=== PATIENT | female | born 1985 | race Caucasian/White ===

== ENCOUNTER → 2020-10-10 13:54 | Outpatient (CLI) | payer BC, SELFPAY ==
--- NOTE | ~2020-10-10 | MM_ITS ---
EXAMINATION: MM scrn beth implant BI w rachel HISTORY: Screening mammogram TECHNIQUE: Craniocaudal and mediolateral oblique 3-D tomosynthesis images with implant displacement a nd synthetic 2-D images were generated. Craniocaudal and mediolateral oblique views of the breasts wi thout implant displacement were obtained using full field digital mammography. CAD analysis was submi tted and interpreted. COMPARISON: 10/18/2015 BREAST PARENCHYMAL COMPOSITION: The breasts are heterogeneously dense, which may obscure small masses . FINDINGS: There are bilateral subpectoral silicone implants. There is no evidence of suspicious mass, calcification, or architectural distortion to suggest malignancy in either breast. There has been no suspicious interval change. IMPRESSION: 1. No mammographic evidence of malignancy. 2. Recommend routine screening mammography in one year. BI-RADS Category 1: Negative Reviewed, dictated and finalized at location A. SCRAPER
== END ==
PROVIDERS: Visit Provider Obstetrics & Gynecology
DX: Z12.31 Encounter for screening mammogram for malignant neoplasm of breast (principal)
CPT/HCPCS: 77063; 77067

== ENCOUNTER → 2021-08-05 01:57 | Outpatient (CLI) | payer BC, SELFPAY ==
[2021-08-05 18:07] LABS: SARS-CoV-2 RNA PCR Negative
== END ==
PROVIDERS: PCP Family Medicine Sports Medicine; Visit Provider Otolaryngology
DX: Z01.812 Encounter for preprocedural laboratory examination (principal); Z20.822 Contact with and (suspected) exposure to COVID-19
CPT/HCPCS: C9803; U0003; U0005

== ENCOUNTER 2021-08-08 00:29 | Day surgery (SDC) | payer BC, SELFPAY ==
[2021-08-02 14:11] VITALS: BMI 24.9
--- NOTE | 2021-08-03 16:44 | PM.IMHP ---
H&P: HPI History of Present Illness Date/Time: 08/03/21 16:44 Chief Complaint: chronic tonsillitis, recurrent tonsillitis, pharyngitis, tonsil stones Narrative: patient presents for planned surgical procedure. No change in history no change in symptoms Review of Systems Constitutional: Constitutional: Denies fatigue, Denies fever(s) and Denies lethargy Eyes: Eyes: Denies blurry vision and Denies change in vision ENT: Reports as per HPI Cardiovascular: Cardiovascular: Denies chest pain Respiratory: Respiratory: Denies cough Endocrine: Endocrine: Denies fatigue Hematologic/Lymphatic: Hematologic/Lymphatic: Denies easy bleeding, Denies easy bruising and Denies lymphadenopathy Allergic/Immunologic: Allergic/Immunologic: Denies seasonal rhinorrhea PMFSH Past Medical History Medical History Endometriosis Surgical History Surgical History H/O hernia repair History of section History of cholecystectomy Family History Family History Mother Family history of malignant neoplasm of breast in first degree relative Other Cerebrovascular accident Family history of heart disease in male family member before age 55 Social History Social History (Updated 07/18/21 @ 15:33 by Usha Quintanilla MA) Smoking status: Never smoker Alcohol intake: never Substance use: never Substance use type: does not use Gender identity (if verbalized by the patient): Female Spiritual care concerns: No Meds Home Medications and Allergies Home Medications Medication Instructions Recorded Confirmed Type estradiol [Divigel] 1 mg TOPICAL DAILY 08/02/21 08/02/21 History Allergies Allergy/AdvReac Type Severity Reaction Status Date / Time shellfish derived Allergy Intermediate TROUBLE Verified 08/02/21 14:10 BREATHING Exam Const: General: cooperative, healthy appearing, comfortable, well developed and alert HENMT: Head: normal to inspection, normocephalic and atraumatic Ears: hearing grossly normal bilaterally, external ears normal, TM's normal bilaterally and EAC's normal General nose exam: Normal external nose present, Normal nares present, No nasal polyps present, Normal nasal mucous membranes and turbinates present and Normal septum present Face and sinus: normal facial exam Mouth: Yes Normal oral and palatal mucosa present, Yes lip normal, Yes tongue normal, Yes oropharynx normal and Yes moist mucous membranes Teeth and gingiva: dentition normal and gingiva normal Throat: posterior oropharynx normal, tonisls abnormal ( Appearance of chronic infection cryptic erythematous stones) and uvula midline Eyes: General: appearance normal, both eyes and all related structures Periorbital: periorbital findings normal Eyelids: eyelids normal Conjunctivae: conjunctivae normal Sclera: sclerae normal Neck: Neck: normal visual inspection, full ROM and no lymphadenopathy Thyroid: thyroid normal Lymphatic: no lymphadenopathy noted Resp: Effort & Inspection: normal respiratory effort and able to speak in complete sentences Cardio: Jugular venous distension: no JVD Neuro: Cranial nerves: Yes CN's II-XII intact bilaterally Assessment and Plan Assessment and plan (1) Chronic tonsillitis: Code(s): J35.01 - Chronic tonsillitis Status: Acute Assessment and Plan: Patient has asymmetric tonsils stones somewhat of a chronic tonsillitis recurrent the sense she has had multiple infections each year for many years. Plan is for the OR for tonsillectomy risks were discussed in great detail including pain bleeding possible postoperative bleed postoperative pain need for postoperative pain medication time off work Tooth pain dental pain tongue pain tongue numbness ear pain.. Patient voiced understanding of these risks. Total operative time
--- NOTE | 2021-08-07 16:20 | P.PNAN_ITS ---
Anes - Initial Pre Proc Eval Procedure: Operation Date: 08/08/21 11:30 Proposed Procedures p Tonsillectomy - Fabricio Laughlin MD Date/Time: 08/07/21 16:20 Surgeon: Fabricio Laughlin MD Pre Op Diagnosis: chronic tonsilitis Patient Data Age: 36 Gender: F Height: 1.65 m Weight: 68 kg Allergies Allergy/AdvReac Type Severity Reaction Status Date / Time shellfish derived Allergy Intermediate TROUBLE Verified 08/08/21 09:47 BREATHING Home Medications Medication Instructions Recorded Confirmed Type estradiol [Divigel] 1 mg TOPICAL DAILY 08/02/21 08/08/21 History Patient hx anesthesia problems: none Family hx anesthesia problems: none Results Review: All pre-operative results and documents have been reviewed as part of the pre-operative evaluation. [facility] Past Medical History Medical History (Updated 08/07/21 @ 16:21 by Sony Zavala MD) Chronic tonsillitis Endometriosis Recurrent tonsillitis Surgical History Surgical History H/O hernia repair History of section History of cholecystectomy Family History Family History Mother Family history of malignant neoplasm of breast in first degree relative Other Cerebrovascular accident Family history of heart disease in male family member before age 55 Social History Social History (Updated 07/18/21 @ 15:33 by Usha Quintanilla MA) Smoking status: Never smoker Alcohol intake: never Substance use: never Substance use type: does not use Living arrangements: with family Gender identity (if verbalized by the patient): Female Spiritual care concerns: No Anes - Eval Final PreProcedure Day of Procedure 08/07/21 16:20 Patient weight: normal and overweight Heart: regular rate and rhythm Lungs: clear to auscultation and normal air movement Airway: Mallampati scale class II Neurological: alert and oriented Last oral intake: >/= 8 hours ASA classification: II Emergent: no Anesthetic plan: proceed Anesthesia type and monitoring: general ETT Results Review: All pre-operative results and documents have been reviewed as part of the pre-operative evaluation. Informed Consent: The patient's anesthetic plan and its attendant risks and benefits were discussed with the patient/family/POA. Questions were solicited and answers provided to the satisfaction of the patient/family/POA.
[2021-08-08] VITALS (8 sets, daily range): BP systolic 105–129; BP diastolic 63–89; PULSE 59–99; RESP 10–16; TEMP 36.4–37.2; O2SAT 100
--- NOTE | 2021-08-08 07:09 | WPDHPUPDATE1 ---
History and Physical Update Update Date/Time: 08/08/21 07:09 History and Physical has been reviewed, including an updated exam of the patient. There are NO changes in the patient's condition. Risks, benefits, and alternatives have been discussed and questions answered. Patient agrees to proceed with procedure.
[2021-08-08] MEDS: LACTATED RINGERS 1,000 ML 30 ML IV CONT ×2 (10:10→12:03)
[2021-08-08] MEDS: ACETAMINOPHEN 500 MG TABLET 1000 MG PO (10:10)
[2021-08-08] MEDS: SCOPOLAMINE 1.5 MG PATCH TRANSDERM (10:11)
--- NOTE | 2021-08-08 11:54 | SUR.OPER ---
EBL=5ml
--- NOTE | 2021-08-08 12:16 | W.PM.PROC2 ---
Procedure Note - Detailed Date of Procedure 08/08/21 Pre-op Diagnosis chronic tonsilitis, recurrent tonsillitis, throat pain, pharyngitis Post-op Diagnosis same Procedure Performed With tonsillectomy Surgeon Fabricio Laughlin MD Anesthesia general Indications See above Findings No adenoids 2+ cryptic endophytic tonsils with stones purulence Description of Procedure Patient correctly identified consent verified patient brought to OR time-out performed. General anesthesia induced endotracheal tube secured in midline. Patient prepped and draped 2nd time-out performed. McIvor mouth gag inserted and opened revealed the aforementioned findings. This procedure was bilateral right tonsil grasped dissected in extracapsular plane using Bovie electrocautery at a setting of 8. Bleeding controlled with intermittent application of suction Bovie electrocautery at a setting of 12. Exact same procedure at the exact same findings performed on the left side. Tonsils were symmetric no asymmetry noted. Red rubber catheter placed in the nasal passage to suspend the soft palate anteriorly and near utilized to view the adenoid pad which was nonexistent. Red rubber catheter removed McIvor mouth gag lowered for 30 seconds and reopened revealed no bleeding. Hemostasis was excellent. I performed all dictated portions of the procedure. Total blood loss 5 cc. There were no complications. Care the patient was turned over to Anesthesiology. Estimated Blood Loss -5.0 Drains No Packing No Pathology yes Complications No immediate complications Condition stable Disposition PACU
[2021-08-08] MEDS: fentaNYL CITRATE INJ (*CRX) 100 MCG/2 ML VIAL 25 MCG IV PUSH ×2 (12:23→12:27)
--- NOTE | 2021-08-08 12:36 | SUR.PHASEI ---
Simple mask removed at 1232.
[2021-08-08] MEDS: ONDANSETRON INJ 4 MG/2 ML VIAL IV PUSH (13:04)
--- NOTE | 2021-08-08 14:12 | SUR.PHASEII ---
1300; UPON ARRIVAL INTO [facility] PT BECAME NAUSEATED AND HAD DRY HEAVES. 1304; JEANETTE HERRERA GAVE IV ZOFRAN 1310; PT RESTING QUIETLY. EATING POPSICLE. SPOUSE AT SIDE. 1400; PT DROWSY, EATING SECOND POPSICLE. STATES PAIN MILD AND TOLERABLE 3/10. ICE PACK ON FRONT OF NECK FOR COMFORT. NO NAUSEA AT THIS TIME
== END 2021-08-08 14:43 | disposition home or self-care (01) ==
PROVIDERS: PCP Family Medicine Sports Medicine; Visit Provider Otolaryngology
PROC: (CPT 42826; principal; 2021-08-08 11:30)
DX: J35.01 Chronic tonsillitis (principal)
CPT/HCPCS: 42826; 88302; A9270; J0330; J1100; J2250; J2405; J2704; J3010; J7120

== ENCOUNTER 2024-07-06 00:57 | Day surgery (SDC) | payer BC, SELFPAY ==
[2024-06-29 15:01] VITALS: BMI 23.1
--- NOTE | 2024-06-29 15:20 | PC.NURSE ---
Report to the Outpatient Waiting Room, entrance under the green pavilion located off [facility], at time 1100 on date _07/06/24 . Planned Procedure Time: __1300 .? Time changes happen often and if your time is changed the preop area will call you the afternoon before. - You and your visitor will be asked to self-screen and do not enter if you have any COVID symptoms. Please call surgeon if you need to reschedule. - A mask is optional within the hospital at this time. Patients may have clear liquids (water, carbonated beverages, clear teas, apple juice) until 3 hours prior to surgery with a maximum of 20 ounces. - No food from midnight until time of surgery and no smoking - Infants may have breast milk until 4 hours before surgery, formula 6 hours prior to surgery. - Children will be allowed to drink immediately following surgery.? If applicable, please bring a bottle or sippy cup to assist with drinking. Juice, water, soda, and popsicles are readily available.? For infants on formula, please bring formula the day of surgery.? Pacifiers are allowed. Take only the following medications with a SIP of water on the morning of surgery: __NONE DO NOT STOP ANY OF YOUR OTHER PRESCRIPTION MEDICATIONS PRIOR TO SURGERY EXCEPT THE FOLLOWING Medications to discontinue per physician NONE Date to take last dose____NONE Please no make-up, nail italian, hairspray, perfume, deodorant, or body powder the day of surgery.? No jewelry (including any body piercings) or valuables the day of surgery, leave them at home.? Please take a shower or bath the night before, or the morning of, surgery with an antibacterial soap.? Wear comfortable, loose fitting clothing.? Children are encouraged to wear pajamas. - Jewelry must be removed prior to entering the operating room.? Rings and piercings that are not removed may be cut off. - The hospital will not accept responsibility for valuables.? - Please leave all valuables, including medications, at home the day of surgery. If you are going home after surgery, a licensed paratransit driver must drive you home.? - NO public transportation without another adult if you receive anesthesia. - We recommend that an adult stay with you for 24 hours following discharge. - We also recommend that you do not drive, make important decision, drink alcoholic beverages, or take any drugs that were not prescribed by your health care provider for at least 24 hours after your discharge time. For Pediatric surgeries, we recommend two adults accompany the child home. Follow any additional instructions given to you from your surgeon. Telephone instructions given to ___SHANNON and asked if any additional questions and then verbalized understanding. Patient advised to call surgeon office or pre surgery nurse liaison [phone] if any additional questions.
[2024-07-06] VITALS (10 sets, daily range): BP systolic 114–141; BP diastolic 73–87; PULSE 59–102; RESP 14–18; TEMP 36.4–36.6; O2SAT 99–100
--- NOTE | 2024-07-06 12:30 | P.PNAN_ITS ---
Anes - Initial Pre Proc Eval Procedure: Operation Date: 07/06/24 13:00 Proposed Procedures p Diagnostic Laparoscopy - Sarkis Mae DO Date/Time: 07/06/24 12:30 Surgeon: Sarkis Mae DO Pre Op Diagnosis: rlq abdominal pain Patient Data Age: 38 Gender: F Height: 1.65 m Weight: 63.1 kg Allergies Allergy/AdvReac Type Severity Reaction Status Date / Time shellfish derived Allergy Intermediate TROUBLE Verified 06/29/24 15:15 BREATHING Home Medications Medication Instructions Recorded Confirmed Type estradiol 1 mg/gram (0.1 %) 1 mg topical DAILY 08/02/21 06/29/24 History transdermal gel packet (Divigel) phentermine 37.5 mg tablet 37.5 mg PO DAILY 06/29/24 06/29/24 History spironolactone 100 mg tablet 100 mg PO DAILY 06/29/24 06/29/24 History Patient hx anesthesia problems: post op nausea/vomiting Family hx anesthesia problems: none Results Review: All pre-operative results and documents have been reviewed as part of the pre- operative evaluation. [facility] Past Medical History Medical History Chronic tonsillitis Endometriosis Recurrent tonsillitis Surgical History Surgical History H/O hernia repair History of section History of cholecystectomy Family History Family History Mother Family history of malignant neoplasm of breast in first degree relative Other Cerebrovascular accident Family history of heart disease in male family member before age 55 Social History Social History Smoking status: Former smoker Alcohol intake: never Substance use: never Substance use type: does not use Living arrangements: with family Gender identity (if verbalized by the patient): Female Spiritual care concerns: No Anes - Eval Final PreProcedure Day of Procedure 07/06/24 12:30 Patient weight: normal Heart: regular rate and rhythm Lungs: clear to auscultation Airway: Mallampati scale class II Neurological: alert and oriented Last oral intake: >/= 8 hours ASA classification: II Emergent: no Anesthetic plan: proceed Anesthesia type and monitoring: general ETT and standard monitoring Results Review: All pre-operative results and documents have been reviewed as part of the pre- operative evaluation. Informed Consent: The patient's anesthetic plan and its attendant risks and benefits were discussed with the patient/family/POA. Questions were solicited and answers provided to the satisfaction of the patient/family/POA.
[2024-07-06] MEDS: SCOPOLAMINE 1 MG PATCH 1 PATCH TRANSDERM (12:42)
[2024-07-06] MEDS: LACTATED RINGERS 1,000 ML 30 ML IV CONT ×2 (12:43→14:25)
--- NOTE | 2024-07-06 12:51 | WPDHPUPDATE1 ---
History and Physical Update Update Date/Time: 07/06/24 12:51 History and Physical has been reviewed, including an updated exam of the patient. There are NO changes in the patient's condition. Risks, benefits, and alternatives have been discussed and questions answered. Patient agrees to proceed with procedure.
[2024-07-06] MEDS: BUPIVACAINE/EPINEPHRINE 0.5% 10 ML VIAL 30 ML INFILTRATE (13:23)
[2024-07-06] MEDS: ceFAZolin 2 GM/D5W 50 ML 2 GM/50 ML BAG IVPB (13:32)
--- NOTE | 2024-07-06 14:18 | W.PM.PROC2 ---
Procedure Note - Detailed Date of Procedure 07/06/24 Pre-op Diagnosis rlq abdominal pain Post-op Diagnosis Same Procedure Performed 1. Laparoscopic adhesiolysis 2. Laparoscopic peritoneal biopsy Surgeon Sarkis Mae DO Anesthesia General and Local (0.5% bupivacaine with epinephrine) Indications This is a 38-year-old woman who presented with chronic right lower quadrant abdominal pain. She was able to identify the location of the pain just inferior and to the right of her umbilicus. The pain was significantly limiting her activity. She also suffers from chronic constipation. She has not noticed any improvement of the pain with bowel movements. She does have a history of multiple prior abdominal surgeries including pelvic surgeries and umbilical hernia repair with mesh. No recurrent hernias were palpable in the inguinal or abdominal region. Discussions were made with the patient about treatment options and decision was made to proceed with diagnostic laparoscopy. Findings Diagnostic laparoscopy was performed. The patient was found to have some omental adhesions up to the mesh from the prior hernia repair. The mesh all appeared well incorporated and intact without any signs of hernia recurrence. There were no signs of inguinal hernia in the right groin region. The patient did have some permanent sutures running circumferentially around the mesh. The sutures were excised in the area of the right lateral and right lower abdomen to hopefully help with any potential pain related to the sutures. There also appeared to be some mucoid peritoneal implants near the mesh and near the inferior edge of the right lobe of the liver. A peritoneal biopsy was performed of a couple of these areas to determine if this is related to endometriosis or other process. After thorough inspection of the bowel and the remainder of the abdomen, no other significant abnormalities were noted. Description of Procedure Procedure as well as risks, benefits, and alternatives were discussed with the patient. Written consent was obtained and placed in chart prior to procedure. Patient was brought back to surgical suite. She was placed supine on operating table. Time-out was done to confirm patient and procedure. She was then intubated by the anesthesia department. Her abdomen was prepped and draped in sterile fashion using chlorhexidine prep. A 5 mm incision was made in the left subcostal region and a 5 mm Optiview trocar was advanced through the abdominal layers under direct visualization. Once inside the abdominal cavity, carbon dioxide insufflation was utilized to create a pneumoperitoneum. The camera was inserted in the abdomen was inspected. A few omental adhesions were identified in the midline periumbilical region, but no other significant abnormalities were noted. Another 5 mm incision was made in the left lower quadrant a 5 mm trocar was inserted under direct visualization. One more 5 mm incision was made in the suprapubic region in the midline and a 5 mm trocar was inserted under direct visualization. The omental adhesions were carefully taken down using scissors with electrocautery. I was then able to visualize the mesh from the previous hernia repair and this all appeared well incorporated into the abdominal wall without any signs of hernia recurrence. There were some permanent barbed sutures running around the circumference of the mesh. The suture was carefully removed from the right lateral abdomen all the way down to the suprapubic region using laparoscopic scissors. The bowel was then carefully inspected and all appeared healthy viable. The pelvic region was carefully inspected and no definite signs of endometriosis were identified. As I was inspecting the right lateral abdomen along the abdominal wall, there did appear to be some mucoid appearing implants on the peritoneal surface. Several of these areas were excised using laparoscopic scissors and the perito
[2024-07-06] MEDS: fentaNYL CITRATE INJ (*CRX) 100 MCG/2 ML VIAL 25 MCG IV PUSH (15:05)
[2024-07-06] MEDS: oxyCODONE HCL (*CRX) 5 MG TAB IR PO (16:04)
== END 2024-07-06 16:45 | disposition home or self-care (01) ==
PROVIDERS: PCP Family Medicine Sports Medicine; Visit Provider Surgery
PROC: (CPT 49320; principal; 2024-07-06 13:00)
DX: K66.0 Peritoneal adhesions (postprocedural) (postinfection) (principal); K66.8 Other specified disorders of peritoneum; J35.01 Chronic tonsillitis; Z98.890 Other specified postprocedural states; Z90.49 Acquired absence of other specified parts of digestive tract; Z87.891 Personal history of nicotine dependence; Z80.3 Family history of malignant neoplasm of breast; Z82.49 Family history of ischemic heart disease and other diseases of the circulatory system
CPT/HCPCS: 49321; 88305; A9270; J0690; J1100; J2250; J2405; J2704; J3010; J7030; J7120

== ENCOUNTER 2024-08-20 00:17 | Day surgery (SDC) | payer BC, SELFPAY ==
[2024-08-07 14:09] VITALS: BMI 23.8
--- NOTE | 2024-08-20 07:37 | P.PNAN_ITS ---
Anes - Initial Pre Proc Eval Procedure: Operation Date: 08/20/24 09:00 Proposed Procedures p Screening Colonoscopy - Sarkis Mae DO Date/Time: 08/20/24 07:37 Surgeon: Sarkis Mae DO Pre Op Diagnosis: RLQ abdominal pain, hx colon polyps, constipation Patient Data Age: 39 Gender: F Height: 1.65 m Weight: 65 kg Allergies Allergy/AdvReac Type Severity Reaction Status Date / Time shellfish derived Allergy Intermediate TROUBLE Verified 08/07/24 13:54 BREATHING Home Medications Medication Instructions Recorded Confirmed Type estradiol 1 mg/gram (0.1 %) 1 mg topical DAILY 08/02/21 08/07/24 History transdermal gel packet (Divigel) spironolactone 100 mg tablet 100 mg PO DAILY 06/29/24 08/07/24 History Patient hx anesthesia problems: post op nausea/vomiting Family hx anesthesia problems: none Results Review: All pre-operative results and documents have been reviewed as part of the pre- operative evaluation. [facility] Past Medical History Medical History Chronic tonsillitis Endometriosis Recurrent tonsillitis Surgical History Surgical History H/O hernia repair History of section History of cholecystectomy History of laparoscopy 07/06/24 Laparoscopic adhesiolysis 2. Laparoscopic peritoneal biopsy Dr. Mae Family History Family History Mother Family history of malignant neoplasm of breast in first degree relative Other Cerebrovascular accident Family history of heart disease in male family member before age 55 Social History Social History Smoking status: Former smoker Alcohol intake: never Substance use: never Substance use type: does not use Living arrangements: with family Gender identity (if verbalized by the patient): Female Spiritual care concerns: No Anes - Eval Final PreProcedure Day of Procedure 08/20/24 07:37 Patient weight: normal Heart: regular rate and rhythm Lungs: clear to auscultation Airway: Mallampati scale class II Neurological: alert and oriented Last oral intake: >/= 8 hours ASA classification: I Emergent: no Anesthetic plan: proceed Anesthesia type and monitoring: general GIVS Results Review: All pre-operative results and documents have been reviewed as part of the pre- operative evaluation. Informed Consent: The patient's anesthetic plan and its attendant risks and benefits were discussed with the patient/family/POA. Questions were solicited and answers provided to the satisfaction of the patient/family/POA.
[2024-08-20 07:48] VITALS: BP 119/66; PULSE 80; RESP 16; TEMP 36.1; O2SAT 100; BMI 25.7
[2024-08-20] MEDS: LACTATED RINGERS 1,000 ML 150 ML IV CONT (08:06)
--- NOTE | 2024-08-20 09:15 | WPDHPUPDATE1 ---
History and Physical Update Update Date/Time: 08/20/24 09:15 History and Physical has been reviewed, including an updated exam of the patient. There are NO changes in the patient's condition. Risks, benefits, and alternatives have been discussed and questions answered. Patient agrees to proceed with procedure.
[2024-08-20 09:39] VITALS: BP 118/77; PULSE 83; RESP 18; O2SAT 100
[2024-08-20 09:49] VITALS: BP 120/80; PULSE 81; RESP 20; O2SAT 100
[2024-08-20 09:56] VITALS: BP 120/80; PULSE 76; RESP 18; O2SAT 100
== END 2024-08-20 10:08 | disposition home or self-care (01) ==
PROVIDERS: PCP Family Medicine Sports Medicine; Visit Provider Surgery
PROC: 0DJD8ZZ Inspection of Lower Intestinal Tract, Via Natural or Artificial Opening Endoscopic (ICD-10-PCS; CPT 45378; principal; 2024-08-20 09:00)
DX: Z48.815 Encounter for surgical aftercare following surgery on the digestive system (principal); J35.01 Chronic tonsillitis; N80.9 Endometriosis, unspecified; Z98.890 Other specified postprocedural states; Z90.49 Acquired absence of other specified parts of digestive tract; Z87.891 Personal history of nicotine dependence; Z86.0100 Personal history of colon polyps, unspecified; Z80.3 Family history of malignant neoplasm of breast; Z82.49 Family history of ischemic heart disease and other diseases of the circulatory system
CPT/HCPCS: 45378; J7120